=== PATIENT | male | born 1995 | race Caucasian/White ===

== ENCOUNTER 2017-04-26 12:57 | Emergency (ER) | payer OTHER ==
[~2017-04-26] VITALS: Ht 180.3 cm; Wt 72.7 kg
[2017-04-26] MEDS ORDERED: NORCO, ANEXSIA 5/325MG TABLET (HYDROcodone/ACETAMINOPHEN) PO ONE (14:00)
[2017-04-26] MEDS ORDERED: PERCOCET 5MG/325MG TAB PO ONE (14:15)
[2017-04-26] MEDS ORDERED: NAPR500T PO (14:41)
--- NOTE | 2017-04-26 14:42 | REP ---
Clinical: Trauma. Technique: Frontal view of the pelvis with neutral and frog lateral views of the left hip. Findings: No acute fracture dislocation. Skeletal structures, joint spaces, and surrounding soft tissues are normal. Surrounding soft tissues are unremarkable. No subcutaneous emphysema or radiodense foreign body. Impression: Normal pelvis and left hip radiographs. Signed by Ashkan Corbin MD 04/26/2017 02:34 P
[2017-04-26 15:09] VITALS: BP 136/62
== END 2017-04-26 15:14 | disposition home or self-care (01) ==
LOC: M ED 12:57
DX: Z04.1 Encounter for examination and observation following transport accident (principal); S70.02XA Contusion of left hip, initial encounter; V89.9XXA Person injured in unspecified vehicle accident, initial encounter; Y92.89 Other specified places as the place of occurrence of the external cause; Y93.89 Activity, other specified; Y99.8 Other external cause status

== ENCOUNTER 2018-04-23 12:30 | Inpatient (IN) | payer OTHER ==
[2018-04-23 13:17] LABS: HEMATOCRIT 47.5 % (42.0-52.0); HEMOGLOBIN 16.2 g/dl (13.5-17.5); MEAN CORPUSCULAR HEMOGLOBIN 30.5 pg (27.0-33.0); MEAN CORPUSCULAR HGB CONC 34.1 g/dl (32.0-36.5); MEAN CORPUSCULAR VOLUME 89.5 fl (80.0-96.0); PLATELET COUNT, AUTOMATED 284 10^3/uL (150-450); RED BLOOD COUNT 5.31 10^6/uL (4.30-6.10); RED CELL DISTRIBUTION WIDTH 12.6 % (11.5-14.5); WHITE BLOOD COUNT 8.5 10^3/uL (4.0-10.0)
[2018-04-23 13:53] LABS: ACETAMINOPHEN LEVEL < 2.0 UG/ML (10.0-30.0); ALBUMIN 4.5 GM/DL (3.2-5.2); ALBUMIN/GLOBULIN RATIO 1.36 (1.00-1.93); ALKALINE PHOSPHATASE 85 U/L (45-117); ALT/SGPT 25 U/L (12-78); ANION GAP 6 MEQ/L (8-16); AST/SGOT 19 U/L (7-37); BILIRUBIN,DIRECT < 0.1 MG/DL (0.0-0.2); BILIRUBIN,TOTAL 0.4 MG/DL (0.2-1.0); BLOOD UREA NITROGEN 26 MG/DL (7-18); CALCIUM LEVEL 9.5 MG/DL (8.5-10.1); CARBON DIOXIDE LEVEL 28 MEQ/L (21-32); CHLORIDE LEVEL 102 MEQ/L (98-107); CREATININE FOR GFR 1.04 MG/DL (0.70-1.30); ETHYL ALCOHOL (ETHANOL) < 0.003 % (0.000-0.010); GLOMERULAR FILTRATION RATE > 60.0 (>60); GLUCOSE, FASTING 120 MG/DL (70-100); POTASSIUM SERUM 4.2 MEQ/L (3.5-5.1); SALICYLATE LEVEL 3.7 MG/DL (5.0-30.0); SODIUM LEVEL 136 MEQ/L (136-145); TOTAL PROTEIN 7.8 GM/DL (6.4-8.2)
[2018-04-23 15:44] LABS: AMPHETAMINES LEVEL URINE NEGATIVE (NEGATIVE); BARBITURATES URINE NEGATIVE (NEGATIVE); BENZODIAZEPINES URINE NEGATIVE (NEGATIVE); CANNABINOIDS URINE NEGATIVE (NEGATIVE); COCAINE METABOLITE URINE NEGATIVE (NEGATIVE); METHADONE URINE NEGATIVE (NEGATIVE); OPIATES URINE NEGATIVE (NEGATIVE); PHENCYCLIDINE URINE NEGATIVE (NEGATIVE)
[2018-04-23] MEDS: NICOTINE 21MG/24HR 1 EA TRANSDERMAL TD (17:15)
[2018-04-23] MEDS ORDERED: MAALOX 30 ML SUSP *UDC PO (18:15)
[2018-04-23] MEDS ORDERED: MOM 30ML SUSPENSION UDC PO (18:15)
[2018-04-24] MEDS: NICOTINE 21MG/24HR 1 EA TRANSDERMAL TD (08:29)
[2018-04-24] MEDS: SERTRALINE HCL 25 MG TABLET PO (12:17)
[2018-04-24] MEDS: traZODone 50 MG TAB PO (22:45)
[2018-04-25] MEDS: NICOTINE 21MG/24HR 1 EA TRANSDERMAL TD (08:04)
[2018-04-25] MEDS: SERTRALINE HCL 25 MG TABLET PO (08:04)
[2018-04-25] MEDS: traZODone 25MG PER 1/2 TABLET PO (22:58)
[2018-04-26] MEDS: SERTRALINE HCL 25 MG TABLET PO (08:04)
[2018-04-26] MEDS: NICOTINE 21MG/24HR 1 EA TRANSDERMAL TD (08:05)
[2018-04-27] MEDS: SERTRALINE HCL 25 MG TABLET PO (08:28)
[2018-04-27] MEDS: NICOTINE 21MG/24HR 1 EA TRANSDERMAL TD (08:28)
[2018-04-27] MEDS: ACETAMINOPHEN TAB 650MG DOSE (2X325MG) PO (22:03)
[2018-04-27] MEDS: NAPROXEN 250 MG TAB PO (23:12)
[2018-04-28] MEDS: SERTRALINE HCL 25 MG TABLET PO (08:21)
[2018-04-28] MEDS: NICOTINE 21MG/24HR 1 EA TRANSDERMAL TD (08:21)
[2018-04-29] MEDS: SERTRALINE HCL 25 MG TABLET PO (09:07)
[2018-04-29] MEDS: NICOTINE 21MG/24HR 1 EA TRANSDERMAL TD (09:07)
== END 2018-04-29 11:07 | disposition home or self-care (01) | DRG 881 ==
LOC: M ED 12:30 → M ED INP 18:13 → M PSY 20:09
DX: F32.9 Major depressive disorder, single episode, unspecified (principal); R45.851 Suicidal ideations; F41.9 Anxiety disorder, unspecified; F17.200 Nicotine dependence, unspecified, uncomplicated

== ENCOUNTER 2018-10-24 13:39 | Emergency (ER) | payer OTHER ==
[~2018-10-24 13:39] MED LIST: NAPR-837 PO; SERT25TA85 PO; TRAZ25TA PO
--- NOTE | 2018-10-24 15:12 | REP ---
Chest two views HISTORY: Chest pain Comparison: None The lungs are clear. The heart is normal in size. The pulmonary vasculature is normal in appearance. The bony structure is intact. IMPRESSION: No acute disease. Electronically Signed by Iggy Jeffries MD 10/24/2018 03:04 P
[2018-10-24] MEDS ORDERED: diazePAM 5 MG TAB PO ONE (15:15)
[2018-10-24 15:21] LABS: BASO # 0.1 10^3/uL (0.0-0.2); BASO % 0.7 % (0.0-1.0); EOS # 0.3 10^3/uL (0.0-0.50); EOS % 3.3 % (0.0-3.0); HEMOGLOBIN 14.2 g/dl (13.5-17.5); LYMPH # 2.3 10^3/uL (1.5-6.5); LYMPH % 24.1 % (24.0-44.0); MEAN CORPUSCULAR HEMOGLOBIN 31.3 pg (27.0-33.0); MEAN CORPUSCULAR HGB CONC 33.8 g/dl (32.0-36.5); MEAN CORPUSCULAR VOLUME 92.5 fl (80.0-96.0); MONO # 0.8 10^3/uL (0.0-0.8); MONO % 8.4 % (0.0-5.0); NEUTROPHILS % 63.2 % (36.0-66.0); PLATELET COUNT, AUTOMATED 256 10^3/uL (150-450); RED BLOOD COUNT 4.54 10^6/uL (4.30-6.10); WHITE BLOOD COUNT 9.6 10^3/uL (4.0-10.0)
[2018-10-24 15:48] LABS: ERYTHROCYTE SEDIMENTATION RATE 9 mm/hr (0-15)
[2018-10-24 15:55] LABS: BLOOD UREA NITROGEN 10 MG/DL (7-18); CARBON DIOXIDE LEVEL 30 MEQ/L (21-32); CHLORIDE LEVEL 106 MEQ/L (98-107); CK-MB VALUE MASS < 1.0 NG/ML (<3.6); CPK CREATINE PHOSPHOKINASE 124 U/L (39-308); CREATININE FOR GFR 0.98 MG/DL (0.70-1.30); GLOMERULAR FILTRATION RATE > 60.0 (>60); GLUCOSE, FASTING 96 MG/DL (70-100); MB/CK RELATIVE INDEX 0.81 (< OR =4); NT-PRO BNP 29 PG/ML (<125); POTASSIUM SERUM 4.2 MEQ/L (3.5-5.1); SODIUM LEVEL 138 MEQ/L (136-145); TROPONIN I < 0.02 NG/ML (< 0.10)
[2018-10-24 16:24] VITALS: BP 136/74
--- NOTE | 2018-10-24 17:21 | ECGEPIP ---
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
== END 2018-10-24 16:25 | disposition home or self-care (01) ==
LOC: M ED 13:39
DX: M79.621 Pain in right upper arm (principal); T50.B15A Adverse effect of smallpox vaccines, initial encounter; X58.XXXA Exposure to other specified factors, initial encounter; Y92.89 Other specified places as the place of occurrence of the external cause; I45.10 Unspecified right bundle-branch block; I10 Essential (primary) hypertension; F33.9 Major depressive disorder, recurrent, unspecified; F41.9 Anxiety disorder, unspecified; Z79.899 Other long term (current) drug therapy; F17.210 Nicotine dependence, cigarettes, uncomplicated